=== PATIENT | male | born 1985 | race Caucasian/White ===

== ENCOUNTER 2022-12-25 19:15 | Emergency (ER) | payer OTHER, SELFPAY ==
--- NOTE | ~2022-12-25 | XR_ITS ---
EXAMINATION: XR wrist RT min 3V DATE: 12/25/2022 20:02 INDICATION: Right wrist pain. TECHNIQUE: 4 views of right wrist were obtained. COMPARISON: None. FINDINGS: Bone alignment is normal. No fracture. Joint spaces are normal. IMPRESSION: 1. Normal right wrist. Reviewed, dictated and finalized at location E[facility] IMPRESSION: 1. Normal right wrist.
[2022-12-25 19:25] VITALS: BP 161/90; PULSE 97; RESP 18; TEMP 36.4; O2SAT 99
--- NOTE | 2022-12-25 20:19 | ED.GENADULT ---
HPI - General Adult General Chief complaint: Wound/Laceration Stated complaint: laceration top of head Time Seen by Provider: 12/25/22 19:53 Source: patient Mode of arrival: ambulatory Limitations: no limitations History of Present Illness HPI narrative: This is a 37-year-old male who presents to the ED with chief complaint of head injury that occurred just prior to arrival. Patient was moving a [employer] equipment outside when it started to fold and hit the top of his head. He reports a subsequent cut to the right superior scalp and mild pain in the area. Reports some mild right wrist pain as well as the wrist was involved in the injury. Denies numbness, weakness or any further site of pain or injury. Reports bleeding was controlled upon arrival. Related Data Allergies Allergy/AdvReac Type Severity Reaction Status Date / Time cefixime [From Suprax] Allergy Rash Verified 12/25/22 20:10 Review of Systems Review of Systems: All systems as dictated in HPI Exam Narrative: GENERAL: Well-appearing, well-nourished, and in no acute distress. HEAD: Normocephalic, atraumatic. EYES: PERRLA and EOMI. ENT: Nares clear, no rhinorrhea or epistaxis. Mucous membranes moist. Oropharynx without tonsillar hypertrophy exudate or other lesions. NECK: Supple. No adenopathy or masses. CHEST: No respiratory distress. Clear to auscultation. No wheezes rales or rhonchi HEART: Regular rate and rhythm. No murmur heard. Normal peripheral pulses. ABDOMEN: Soft, nontender, nondistended, normal active bowel sounds. MSK: Small area of bruising and swelling to the right radial wrist. No deformity. Minimal tenderness. Neurovascular intact distally. SKIN: 3 cm laceration to the right superior scalp. Bleeding controlled. Minimal tenderness. NEURO: Alert and oriented x3. No focal deficits. PSYCH: Normal mood and affect. Course Vital Signs Vital signs: Vital Signs Temperature 97.5 F L 12/25/22 19:25 Pulse Rate 97 12/25/22 19:25 Respiratory Rate 18 12/25/22 19:25 Blood Pressure 161/90 H 12/25/22 19:25 Pulse Oximetry 99 12/25/22 19:25 Oxygen Delivery Room Air 12/25/22 19:25 Temperature 97.5 F L 12/25/22 19:25 Pulse Rate 97 12/25/22 19:25 Respiratory Rate 18 12/25/22 19:25 Blood Pressure 161/90 H 12/25/22 19:25 Pulse Oximetry 99 12/25/22 19:25 Oxygen Delivery Room Air 12/25/22 19:25 Procedures Laceration Laceration 1: Date: 12/25/22 Time: 20:40 Site: scalp Side (If applicable): right Size (cm): 3 Description: linear Depth: simple, single layer Local Anesthetic: none Pre-repair: wound explored, irrigated extensively and deep structures intact ====== Skin Level ====== Skin layer closed with: nathan (3) ====== Subcutaneous Layer ====== ====== Muscle Layer ====== ====== Tendon Layer ====== Dressing: None Medical Decision Making MDM Narrative Medical decision making narrative: This is a 37-year-old male who presents to the ED with chief complaint of right scalp laceration and right wrist pain. He was hit in the head by a piece of gym equipment. Vitals are normal. Exam remarkable for the above. The laceration is somewhat well approximated here. It was cleaned out thoroughly and irrigated. 3 nathan were placed. Neuro exam normal and he did not have any LOC. Head imaging not warranted. right wrist x-ray is normal. Laceration instructions given. Pt will be discharged in stable condition. Return precautions given and supportive measures discussed. Pt is understanding and agreeable with plan for discharge and follow-up with PCP. Vital Signs Vital Signs: Vital Signs Temperature 97.5 F L 12/25/22 19:25 Pulse Rate 97 12/25/22 19:25 Respiratory Rate 18 12/25/22 19:25 Blood Pressure 161/90 H 12/25/22 19:25 Pulse Oximetry 99 12/25/22 19:25 Oxygen Delivery Room Air
== END 2022-12-25 20:49 | disposition home or self-care (01) ==
PROVIDERS: Emergency Provider Physician Assistant; PCP Family Medicine
DX: S01.01XA Laceration without foreign body of scalp, initial encounter (principal); S69.91XA Unspecified injury of right wrist, hand and finger(s), initial encounter; W22.8XXA Striking against or struck by other objects, initial encounter
CPT/HCPCS: 12002; 73110; 99283